=== PATIENT | female | born 1975 | race Caucasian/White ===

== ENCOUNTER 2019-11-05 13:02 | Outpatient (CLI) | payer BC, SELFPAY ==
--- NOTE | ~2019-11-05 | US_ITS ---
EXAMINATION: US venous doppler LE EXAM DATE: 11/05/2019 15:32 INDICATION: Bilateral leg edema. TECHNIQUE: Multiple grayscale, color flow and Doppler images of the lower extremity deep venous syste ms bilaterally were obtained and reviewed. The exam was reviewed on 11/05/2019. There is no prior aditya dy for comparison. FINDINGS: Right side: The right common femoral, femoral and profunda veins demonstrate normal color flow, respi ratory variation, augmentation and compressibility. Compressibility, color flow confirmed within the right popliteal, posterior tibial, peroneal, and greater saphenous veins. Right Standing Venous Mapping: reflux seconds duration; vein size. Greater saphenous origin: 0 seconds; 6.3 mm. Greater saphenous mid thigh:------ 0 seconds; 4.1 mm. Greater saphenous below knee:--- Greater than 4 seconds; 2.2 mm. Lesser saphenous proximally:------ 0 seconds; 3.1 mm. Lesser saphenous distally: 0 seconds; 1.6 mm. Left side: The left common femoral, femoral and profunda veins demonstrate normal color flow, respira tory variation, augmentation and compressibility. Compressibility, color flow confirmed within the l eft popliteal, posterior tibial, peroneal, and greater saphenous veins. Left Standing Venous Mapping: reflux seconds duration; vein size. Greater saphenous origin: 0 seconds; 4.7 mm. Greater saphenous mid thigh:------ 0 seconds; 5.0 mm. Greater saphenous below knee:--- 0 seconds; 2.3 mm. Lesser saphenous proximally:------ 0 seconds; 3.8 mm. Lesser saphenous distally: 0 seconds; 1.6 mm. IMPRESSION: 1. No lower extremity deep venous thrombosis bilaterally. 2. Right mid thigh greater saphenous reflux. Reviewed, dictated and finalized at location A.
== END 2019-11-05 13:03 | disposition home or self-care (01) ==
LOC: ANHIMG 13:14
PROVIDERS: PCP Internal Medicine; Visit Provider Internal Medicine
DX: R60.0 Localized edema (principal)
CPT/HCPCS: 93970

== ENCOUNTER → 2019-11-06 15:58 | Outpatient (CLI) | payer BC, SELFPAY ==
--- NOTE | ~2019-11-06 | MR_ITS ---
EXAMINATION: MR foot LT wo con DATE: 11/06/2019 17:45 INDICATION: Left foot stress fracture. TECHNIQUE: Magnetic resonance imaging (MRI) of the left foot was performed without intravenous contra st. Sequences included sagittal T1-weighted FSE and STIR FSE, long-axis PD-weighted FS FSE and PD-iliana ghted FSE, and short-axis PD-weighted FS FSE and T1-weighted FSE. COMPARISON: None FINDINGS: Bone alignment is normal. No fracture. Bone marrow signal intensity is normal. 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 Lisfranc ligament is normal. The flexor and exte nsor tendons are normal. The muscles demonstrate normal signal intensity. Dorsal subcutaneous edema i s noted in the foot. There is subcutaneous edema in the second and third digits. IMPRESSION: 1. No fracture. Reviewed, dictated and finalized at location A. IMPRESSION: 1. No fracture.
== END ==
PROVIDERS: Visit Provider Podiatrist Foot & Ankle Surgery
DX: M84.375D Stress fracture, left foot, subsequent encounter for fracture with routine healing (principal)
CPT/HCPCS: 73718

== ENCOUNTER → 2019-11-06 16:08 | Outpatient (CLI) | payer BC, SELFPAY ==
--- NOTE | ~2019-11-06 | MM_ITS ---
EXAMINATION: MM screening tonio BI w yadiel HISTORY: Screening mammogram TECHNIQUE: Craniocaudal and mediolateral oblique 3-D tomosynthesis images were obtained and synthetic 2-D images were generated. CAD analysis was submitted and interpreted. COMPARISON: None, baseline BREAST PARENCHYMAL COMPOSITION: The breasts are almost entirely fatty. FINDINGS: RIGHT BREAST: There is focal asymmetry in the middle third of the upper outer quadrant of the breast. LEFT BREAST: There is no evidence of suspicious mass, calcification, or architectural distortion to s uggest malignancy. IMPRESSION: 1. Focal asymmetry of the upper outer right breast. 2. Additional mammographic views and possible breast ultrasound are recommended to evaluate for malig kitty and establish a baseline given that this is the first mammographic examination. BI-RADS Category 0: Incomplete: Needs additional imaging evaluation. Reviewed, dictated and finalized at location A. IMPRESSION: 1. Focal asymmetry of the upper outer right breast. 2. Additional mammographic views and possible breast ultrasound are recommended to evaluate for malignancy and establish a baseline given that this is the fir st mammographic examination. BI-RADS Category 0: Incomplete: Needs additional imaging evaluation.
== END ==
PROVIDERS: Visit Provider Obstetrics & Gynecology
DX: Z12.31 Encounter for screening mammogram for malignant neoplasm of breast (principal)
CPT/HCPCS: 77063; 77067

== ENCOUNTER 2019-11-14 12:36 | Outpatient (CLI) | payer BC, SELFPAY ==
--- NOTE | 2019-11-14 | ECHO_ITS ---
Patient Info Name: Elva Laird Age: 44 years : 1975 Gender: Female Ht: 64 in Wt: 243 lbs BSA: 2.29 m2 HR: 82 bpm BP: 145 / 95 mmHg Heart Rhythm: Sinus Rhythm Technical Quality: Good Exam Date: 11/14/2019 1:13 PM Exam Location: [facility] Patient Status: Outpatient Admit Date: 11/14/2019 Staff Ordering Physician: German*Gilda De Leon MD Union Steward: Amarilis Villanueva RDCS Attending Provider: German*Gilda De Leon MD Referring Physician: Shira WALKER; Exam Type: CA echo doppler color flow Study Info Indications - sob Complete two-dimensional, color flow and Doppler transthoracic echocardiogram is performed. Summary 1. Left ventricular chamber dimension is normal. 2. Left ventricular systolic function is normal, estimated at 60-65%. 3. The left ventricular diastolic function is grade I diastolic dysfunction. 4. There is mildly increased left ventricular wall thickness. 5. The basal inferior wall is hypokinetic. 6. All other irwin appear normal. 7. There is mild mitral valve regurgitation. 8. There is mild tricuspid valve regurgitation. 9. There is mild pulmonic regurgitation. Left Ventricle Left ventricular chamber dimension is normal. Left ventricular systolic function is normal, estimated at 60-65%. There is mildly increased left ventricular wall thickness. The left ventricular diastolic function is grade I diastolic dysfunction. The basal inferior wall is hypokinetic. All other irwin appear normal. Right Ventricle Right ventricular chamber dimension is mildly enlarged. Right ventricular systolic function is normal. Left Atria Left atrial chamber dimension is normal. Right Atria Right atrial chamber dimension is normal. Atrial Septum Intact interatrial septum visualized by color flow imaging. Aortic Valve The aortic valve is trileaflet. There is mild aortic valve sclerosis. There is no aortic valve stenosis. There is trace aortic valve regurgitation. Pulmonic Valve The pulmonic valve is normal. There is no pulmonic valve stenosis. There is mild pulmonic regurgitation. Mitral Valve The mitral valve has normal leaflets. There is no mitral valve stenosis. There is mild mitral valve regurgitation. Tricuspid Valve The tricuspid valve leaflets are normal. There is no significant tricuspid valve stenosis. There is mild tricuspid valve regurgitation. No pulmonary hypertension, estimated pulmonary arterial systolic pressure is 32 mmHg. Pericardium/Pleural The pericardium appears normal. Inferior Vena Cava Normal inferior vena cava with >50% collapse upon inspiration consistent with normal right atrial pressure, 10 mmHg. Aorta The aortic root size at the sinus of Valsalva is normal. The prox ascending aorta size is normal. Left Ventricular Outflow Tract Name Value Normal LVOT 2D LVOT Diameter 2.0 cm LVOT Doppler LVOT Peak Gradient 5 mmHg LVOT Mean Gradient 3 mmHg LVOT VTI 21 cm LVOT VTI/AV VTI Ratio 0.7
== END 2019-11-14 12:37 | disposition home or self-care (01) ==
PROVIDERS: PCP Internal Medicine; Visit Provider Internal Medicine
DX: R06.02 Shortness of breath (principal); I08.3 Combined rheumatic disorders of mitral, aortic and tricuspid valves
CPT/HCPCS: 93306

== ENCOUNTER → 2019-11-22 07:34 | Outpatient (CLI) | payer BC, SELFPAY ==
--- NOTE | ~2019-11-22 | MMUS_ITS ---
EXAMINATION: MM diagnostic mammo unilat RT, US breast RT limited HISTORY: Focal asymmetry of upper outer right breast reported on 11/06/2019 screening mammogram examin ation TECHNIQUE: Additional 3-D tomosynthesis images of the right breast were performed and synthetic 2-D i mages were generated. CAD analysis was submitted and interpreted. High resolution upper outer right b reast ultrasound was performed. COMPARISON: 11/06/2019 bilateral digital screening mammogram FINDINGS: MAMMOGRAPHIC FINDINGS: No suspicious mass or architectural distortion, malignant calcification, skin thickening or retractio n is detected. ULTRASOUND: There are 2 circumscribed uniformly hyperechoic masses at 9:00 18 cm and 19 cm from the nipple, measu ring approximately 5 x 5 mm and 4 x 8.6 mm, respectively. There is no internal vascularity or posteri or shadowing. These are likely small lipomas. As a precaution, 6 month targeted right breast ultrasou nd follow-up is recommended. IMPRESSION: 1. Probable benign lipomas of right breast at 9:00 position 18 and 19 cm from nipple 2. Targeted right breast ultrasound follow-up is recommended in 6 months. BI-RADS category 3, probably benign findings. Reviewed, dictated and finalized at location A. IMPRESSION: 1. Probable benign lipomas of right breast at 9:00 position 18 and 19 cm from n ipple 2. Targeted right breast ultrasound follow-up is recommended in 6 months. BI-RADS category 3, probably benign findings.
== END ==
PROVIDERS: PCP Internal Medicine; Visit Provider Obstetrics & Gynecology
DX: R92.8 Other abnormal and inconclusive findings on diagnostic imaging of breast (principal)
CPT/HCPCS: 76642; 77065

== ENCOUNTER 2020-02-03 08:53 | Inpatient (IN) | payer BC, SELFPAY ==
[2020-02-03] VITALS (9 sets, daily range): BP systolic 140–188; BP diastolic 73–88; PULSE 67–87; RESP 16–23; TEMP 36.2–36.7; O2SAT 97–100; BMI 42.0
--- NOTE | ~2020-02-03 | US_ITS ---
US right upper quadrant INDICATION: Chest pain and right upper quadrant pain PROCEDURE: Realtime right upper abdominal ultrasound. COMPARISON: No prior studies for comparison. FINDINGS: The pancreas is normal without focal mass or pancreatic ductal dilation. There is a small 1 cm hyperechoic mass of the right hepatic lobe, most likely benign hemangioma in the absence of know n malignancy. There is normal directional flow in the portal vein. There are gallstones. No gallbladder wall thickening or pericholecystic fluid. Common bile duct jarod ures 3 mm. No sonographic Moura's sign. IMPRESSION: 1: Cholelithiasis. 2: Small 1 cm hyperechoic mass of the right hepatic lobe, most likely benign hemangioma in the absenc e of known malignancy. Clinically correlate. Reviewed, dictated and finalized at location A. IMPRESSION: 1: Cholelithiasis. 2: Small 1 cm hyperechoic mass of the right hepatic lobe, most likely benign he mangioma in the absence of known malignancy. Clinically correlate.
--- NOTE | ~2020-02-03 | XR_ITS ---
EXAMINATION: XR chest 1V portable 02/03/2020 09:27 INDICATION: Chest pain PROCEDURE: 2 view chest COMPARISON: No prior studies for comparison. FINDINGS: The lungs are clear. The cardiomediastinal silhouette is within normal limits. There are no pleural effusions. There is no pneumothorax suspected. IMPRESSION: 1: NO ACUTE CARDIOPULMONARY DISEASE. Reviewed, dictated and finalized at location A.
--- NOTE | ~2020-02-03 | CT_ITS ---
EXAMINATION: CTA chest PE protocol DATE: 02/03/2020 12:32 INDICATION: Shortness of breath. Chest pain. TECHNIQUE: Computed tomography angiography (CTA) of the chest was performed with 100 mL Omnipaque-350 intravenous contrast timed to evaluate the pulmonary arteries. Coronal maximum intensity projection 3D-reconstructions were created by the technologist. Automated exposure control and iterative reconst ruction technique were employed. The dose-length product was 822.24 mGy-cm. COMPARISON: None. FINDINGS: There is a 5 mm nodule in right middle lobe, likely benign. No pleural effusion. The heart size is normal. No pericardial effusion. There is no pulmonary embolus. There is mild thoracic spondy losis. IMPRESSION: 1. No pulmonary embolus. Reviewed, dictated and finalized at location E. IMPRESSION: 1. No pulmonary embolus.
--- NOTE | 2020-02-03 08:55 | ECG_ITS ---
Measurements Intervals [place] Rate: 85 P: 61 IL: 155 QRS: -15 QRSD: 90 T: 11 QT: 371 QTc: 441 Interpretive Statements SINUS RHYTHM BORDERLINE R WAVE PROGRESSION, ANTERIOR LEADS BORDERLINE T WAVE ABNORMALITY- INFERIOR LEADS BASELINE ARTIFACT- I, II, AVR BORDERLINE ECG Electronically Signed On 02-03-2020 11:07:59 CDT by Ruel Egan D.O.
--- NOTE | 2020-02-03 09:09 | ED.CHESTPAIN ---
HPI - Chest Pain General Chief Complaint: Chest Pain Stated Complaint: CP Time Seen by Provider: 02/03/20 08:59 Source: RN notes reviewed History of Present Illness HPI narrative: Patient presents emergency department from home for chest pain. Patient states that pain woke her from sleep at approximately 2 AM this morning. The pain is located in the right upper quadrant and radiates into the right back. Described as sharp and stabbing. Associated with one episode nausea and vomiting. Patient states she took no previous medication for the symptoms denies any fevers or chills shortness of breath diarrhea. Patient states she was going to get a stress test this morning and has not eaten anything Related Data Allergies Allergy/AdvReac Type Severity Reaction Status Date / Time No Known Allergies Allergy Verified 02/03/20 09:03 Review of Systems Review of Systems: Narrative: Gen.: Denies fevers or chills ENT: Denies congestion Respiratory: Denies shortness of breath or cough CV: Reports chest pain GI: Reports right upper quadrant abdominal pain nausea vomiting. Denies diarrhea Musculoskeletal: Denies back pain or muscle pain Neuro: Denies numbness, tingling, weakness or focal weakness Skin: Denies rash Except as documented, all other systems reviewed and negative [facility] Past Medical History Medical History Depression Grade I diastolic dysfunction Surgical History Surgical History Delivery by section x 2 Family History Family History Father Tonsillar cancer Acute myocardial infarction Grandparent Carcinoma of colon Grandparent Gallbladder disease Sibling Gallbladder disease Social History Social History Smoking status: Former smoker Alcohol intake: current Drinks per week: 14 Alcohol use details: Drinks 2-3 drinks of vodka and water per night. Substance use: never Living arrangements: with family Additional living arrangements comments: Lives with significant other, Rishabh. 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 Gender identity (if verbalized by the patient): Female Sexual Orientation (if Verbalized by the Patient): Straight or Heterosexual Exam Narrative: Exam Narrative: APPEARANCE: No acute distress, nontoxic, resting in bed HEENT: Normocephalic, atraumatic, OMM RESPIRATORY: No respiratory distress, clear to auscultation bilaterally with no rhonchi wheezing or rales CARDIOVASCULAR: RRR s murmur ABDOMINAL: Soft, nondistended, tender palpation right upper quadrant, no tenderness left upper quadrant, right lower quadrant left lower quadrant, no rebound or guarding MUSCULOSKELETAl: Moves all extremities. No clubbing, cyanosis or edema. NEURO: Awake and alert. Following commands, speech normal, no focal deficits SKIN:: Warm, dry. Normal Color PSYCHIATRIC: Normal affect/mood Course Course Emergency Course: Called and discussed with Dr. Izquierdo presentation work-up. This time agrees with admission to his service. Request patient started on Zosyn plan for or tomorrow Discussed with patient and family results of workup and diagnosis. Discussed need for admission. Patient and family understand and agree to current treatment plan Vital Signs Vital signs: Vital Signs Temperature 97.2 F L 02/03/20 08:56 Pulse Rate 87 02/03/20 08:56 Respiratory Rate 22 H 02/03/20 08:56 Blood Pressure 188/88 H 02/03/20 08:56 Pulse Oximetry 100 02/03/20 08:56 Temperature 97.2 F L 02/03/20 08:56 Pulse Rate 78 02/03/20 12:14 Respiratory Rate 22 H 02/03/20 12:14 Blood Pressure 149/74 H 02/03/20 12:14 Pulse Oximetry 98 02/03/20 12:14
[2020-02-03] MEDS: SODIUM CHLORIDE 0.9% IV 1,000 ML 999 ML IV CONT (09:13)
[2020-02-03] MEDS: KETOROLAC 30 MG/ML VIAL (*BKC) IV PUSH (09:13)
[2020-02-03 09:39] LABS: Prothrombin Time 12.7 Seconds (11.1-14.7)
[2020-02-03 09:40] LABS: Partial Thromboplastin Time 30.7 SECONDS (22.3-36.8)
[2020-02-03 09:41] LABS: Alanine Aminotransferase 19 U/L (4-35); Albumin Level 4.5 g/dL (3.5-5.1); Alkaline Phosphatase 78 U/L (38-126); Aspartate Amino Transferase 25 U/L (14-36); Bilirubin,Total 0.5 mg/dL (0.2-1.3); Blood Urea Nitrogen 13 mg/dL (7-17); Carbon Dioxide 22 mmol/L (22-30); Chloride 103 mmol/L (98-107); Estimated CRCL calculation 93 ml/min; Estimated Glomerular Filt Rate > 60; Glucose 110 mg/dL (65-105); Lipase 63 U/L (23-300); Potassium 3.9 mmol/L (3.4-5.0); Sodium 135 mmol/L (137-145)
[2020-02-03 10:13] LABS: Basophils Absolute Auto 0.1 K/mm3 (0.0-0.1); Basophils Percent Auto 0.4 % (0.2-1.2); Eosinophils Percent Auto 0.1 % (0-4.4); Hematocrit 41.4 % (37.0-47.0); Hemoglobin 13.8 g/dL (12.0-15.0); Immature Granulocyte Absolute 0.06 K/mm3 (0.00-0.031); Immature Granulocyte Percent A 0.4 % (0-0.5); Lymphocytes Absolute Auto 1.18 K/mm3 (0.9-3.2); Mean Corpuscular HGB Conc 33.3 g/dl (32-36); Mean Corpuscular Hemoglobin 29.6 pg (26-34); Mean Corpuscular Volume 88.7 fl (80-100); Mean Platelet Volume 8.9 fl (7.4-10.4); Monocytes Absolute Auto 0.5 K/mm3 (0.1-0.6); Monocytes Percent Auto 2.9 % (2.6-8.5); Neutrophils Percent Auto 89.2 % (45.5-73.1); Platelet Count Result 373 k/mm3 (150-375); Red Blood Count 4.67 M/mm3 (4.2-5.4); White Blood Count 16.8 K/mm3 (4.5-10.0)
[2020-02-03 10:51] LABS: Troponin I < 0.012 ng/mL (0.000-0.034)
[2020-02-03] MEDS: MORPHINE SULFATE 4 MG/ML INJ IV PUSH (11:07)
[2020-02-03 11:52] LABS: D Dimer 1.69 ug/mL (<0.48)
--- NOTE | 2020-02-03 12:35 | PM.IMHP ---
H&P: HPI History of Present Illness Chief complaint: Cholecystitis Narrative: Elva Laird is a 44 year old female with a history of depression who had a sudden onset of right-sided chest and right upper quadrant abdominal pain around 2:00 am this morning. She reports eating a grilled pork steak, sweet potatoes, corn, and salad for dinner last night. She states the pain woke her up in her sleep and has been coming and going in waves since the onset. No nausea, vomiting, fever, or chills. She denies having this pain in the past. She reports having a recent workup for fatigue and foot swelling by her PCP and was found to have grade I left ventricular diastolic dysfunction on a recent echocardiogram. She is being followed by Dr. Daniels in Cardiology and was scheduled for a stress test today. She reports that on her way to the stress test, the abdominal and right-sided chest pain was becoming more severe and she decided to present to the emergency department instead for evaluation. Chest x-ray showed no acute cardiopulmonary findings. EKG is sinus rhythm without acute ischemic changes. Labs showed a normal troponin, white blood cell count 16,800, normal LFTs, and normal lipase. Right upper quadrant ultrasound showed cholelithiasis and incidentally a small 1 cm hyperechoic mass of the right hepatic lobe, most likely benign hemangioma. Our service was contacted by the emergency department physician for surgical evaluation. The patient is now being seen in the emergency department. While speaking with her, she had about a 5 minute episode of the right-sided chest and right upper quadrant abdominal pain and states it comes intermittently and radiates to her back and right shoulder. Does report a family history of gallbladder disease. No other complaints at this time. Review of Systems Constitutional: Constitutional: Reports as per HPI, Denies chills, Denies excessive sweating, Reports fatigue, Denies fever(s), Denies headache(s) and Denies weakness Eyes: Eyes: Denies change in vision and Denies loss of vision ENT: Reports Normal hearing present, Denies dizziness and Denies headache(s) Cardiovascular: Cardiovascular: Reports chest pain (right-sided chest pain), Denies syncope, Denies leg edema (left foot swelling intermittent recently, seeing PCP for this), Denies lightheadedness, Denies radiating jaw, neck or arm pain, Denies dyspnea and Denies dyspnea on exertion Respiratory: Respiratory: Denies cough, Denies dyspnea and Denies wheezing Gastrointestinal: Gastrointestinal: Reports as per HPI, Reports abdominal pain (RUQ, epigastric), Denies melena, Denies bloating, Denies hematochezia, Denies change in bowel habits, Denies constipation, Denies dysphagia, Denies diarrhea, Denies nausea and Denies vomiting Genitourinary: Genitourinary: Reports no additional female genitourinary complaints and Denies dysuria Musculoskeletal: Musculoskeletal: Denies deformity, Denies joint swelling, Denies radiating pain into limb and Denies tingling Integumentary/Breasts: Skin/Breast: Denies pruritus, Denies wounds and Denies jaundice Neurologic: Reports Normal hearing present, Denies confusion, Denies dizziness, Denies syncope, Denies headache(s), Denies loss of vision, Denies tingling, Denies tremor(s) and Denies weakness Psychiatric: Psychiatric: Denies anxiety, Denies confusion and Reports depression (takes Lexapro, no current depressive symptoms) Endocrine: Endocrine: Denies cold intolerance, Denies excessive sweating and Denies heat intolerance PMFSH Past Medical History Medical History Depression Grade I diastolic dysfunction Surgical History Surgical History Delivery by section x 2 Family History Family History Father Tonsillar cancer Acute myocardial infarction Grandparent Carcino
--- NOTE | 2020-02-03 13:25 | PM.PNGS ---
Progress Note: A&P Assessment and Plan (1) Acute cholecystitis: Code(s): K81.0 - Acute cholecystitis Status: Acute Assessment and Plan: will go ahead admit the patient and start her on Zosyn. She will be given p.r.n. analgesics as well as IV fluids. Plan to proceed with laparoscopic cholecystectomy tomorrow morning. I have discussed the procedure the risks the benefits with the patient. The usual recovery and possibility of conversion to open surgery were discussed. All questions were answered. She understands and agrees to go ahead. 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 The pain radiated through to her back. It was associated with vomiting. The pain was persistent and she came to the emergency room. She had been having some cardiac symptoms better EKG and troponins were both normal. [place] [id number]. Her LFTs and lipase were both normal. Chest x-ray and chest CT a were both negative. She had a gallbladder ultrasound which showed gallstones. She continues to have waxing and waning severe right upper quadrant abdominal pain. She was noted to have right upper quadrant tenderness on exam. She is admitted now for cholecystitis with gallstones. Plans are to proceed with laparoscopic cholecystectomy tomorrow morning. She has a family history of gallbladder disease as well. Review of Systems Review of Systems: All systems reviewed & are unremarkable except as noted in HPI and below Constitutional: Constitutional: Denies headache(s) Cardiovascular: Cardiovascular: Denies chest pain and Denies dyspnea Respiratory: Respiratory: Denies cough and Denies dyspnea Gastrointestinal: Gastrointestinal: Reports as per HPI Neurologic: Denies confusion and Denies headache(s) Exam Const: General: no acute distress, alert, awake and uncomfortable; No confusion Nutritional Appearance: obese Orientation/consciousness: patient oriented x3 and No confusion GI: Inspection: non-distended and scar ( scar) GI Palp: Yes Soft to palpation, Yes Tenderness to palpation present (GI) ( right upper quadrant and epigastric area), Yes Guarding due to palpation present (GI) ( mild), No Hernia present and No Palpable mass present Auscultation: normal bowel sounds Neuro: General: patient oriented x3, no focal motor deficits and No confusion Extrem: General: no calf tenderness and no edema Psych: Affect: normal affect Insight: Good insight present (Psych) Judgement: Good judgement present (Psych) Objective Data Vital Signs Vital Signs: Vital Signs - 24 hr 02/03/20 08:56 02/03/20 09:01 02/03/20 09:02 Temperature 36.2 C L Pulse Rate 87 85 Respiratory Rate 22 H Blood Pressure 188/88 H Pulse Oximetry 100 100 02/03/20 10:13 02/03/20 12:14 02/03/20 13:18 Temperature Pulse Rate 82 78 70 Respiratory Rate 17 22 H 21 H Blood Pressure 149/75 H 149/74 H 145/73 H Pulse Oximetry 99 98 97 02/03/20 13:23 Temperature Pulse Rate 69 Respiratory Rate 23 H Blood Pressure 145/73 H Pulse Oximetry 97 Intake/Output Intake/Output: Intake & Output 01/31/20 02/01/20 02/02/20 02/03/20 23:59 23:59 23:59 23:59 Intake Total 1000 Balance 1000 Meds/Results Medications: Active Medications Generic Name Dose Route Start Last Admin Trade Name Freq PRN Reason Stop Dose Admin Acetaminophen 500 mg 02/03/20 13:19 Tylenol Tablet PO Q6H PRN Mild Pain (1-3) or Fever Hydrocodone Bitart/Acetaminophen 1 tab 02/03/20 13:19 Musella 5-325 Mg
[2020-02-03] MEDS: DEXTROSE 5%/LACTATED RINGERS 1,000 ML 100 ML IV CONT (14:33)
--- NOTE | 2020-02-03 18:07 | ADMGEN ---
This patient, Elva Laird, was admitted to 3 [facility] Surg Room [id number]. Patient/family oriented to hospital policies and general routines including ID bracelet, bed and alarms, visiting hours, pain management, procedures, bathroom and other care routines, personal items, smoking policy, room service/diet, and visiting hours. Valuables list has been completed. Information on how to activate the Rapid Response Team has been discussed. Patient/Family are encouraged to report perceived risks to care and to ask questions if they do not understand what they are told or what they should do.
[2020-02-03] MEDS: FAMOTIDINE 20 MG/2 ML VIAL IV PUSH (20:45)
--- NOTE | 2020-02-03 21:10 | WPDANESEPP ---
Anes - Eval Pre Procedure Procedure: Operation Date: 02/04/20 10:30 Proposed Procedures p Laparoscopic Cholecystectomy - Isidoro Izquierdo MD Date/Time: 02/03/20 21:10 Pre Op Diagnosis: Cholecystitis Patient Data Age: 44 Gender: F Height: 1.63 m Weight: 111 kg Last Vital Signs Temp 36.3 C L 02/03/20 14:00 Pulse 76 02/03/20 14:00 Resp 16 02/03/20 14:00 BP 153/80 H 02/03/20 14:00 Pulse Ox 98 02/03/20 14:00 Allergies Allergy/AdvReac Type Severity Reaction Status Date / Time No Known Allergies Allergy Verified 02/03/20 09:03 Home Medications Medication Instructions Recorded Confirmed Type escitalopram oxalate 10 mg PO DAILY 02/03/20 02/03/20 History norgestrel-ethinyl estradiol 1 tablet PO DAILY 02/03/20 02/03/20 History [Low-Ogestrel (28)] psyllium husk [Metamucil] 1 tbsp PO DAILY PRN 02/03/20 02/03/20 History Laboratory Tests 02/03/20 02/03/20 02/03/20 09:22 09:22 09:23 WBC RBC Hgb Hct MCV MCH MCHC RDW Plt Count MPV Immature Gran % (Auto) Neut % (Auto) Lymph % (Auto) [place] % (Auto) Eos % (Auto) Baso % (Auto) Lymph # (Auto) [place] # (Auto) Eos # (Auto) Baso # (Auto) Abs Immat Gran (auto) Absolute Neuts (auto) Absolute Nucleated RBC Nucleated RBC % PT 12.7 Seconds Seconds (11.1-14.7) INR 1.0 APTT 30.7 SECONDS SECONDS (22.3-36.8) D-Dimer 1.69 ug/mL H ug/mL (<0.48) Sodium Potassium Chloride Carbon Dioxide BUN Creatinine Estim Creat Clear Calc Estimated GFR Glucose Calcium Total Bilirubin AST ALT Alkaline Phosphatase Troponin I < 0.012 ng/mL ng/mL (0.000-0.034) Total Protein Albumin Lipase Blood Type Antibody Screen 02/03/20 02/03/20 02/03/20 09:23 10:07 14:03 WBC 16.8 K/mm3 H K/mm3 (4.5-10.0) RBC 4.67 M/mm3 M/mm3 (4.2-5.4) Hgb 13.8 g/dL g/dL (12.0-15.0) Hct 41.4 % % (37.0-47.0) MCV 88.7 fl fl (80-100) MCH 29.6 pg pg (26-34) MCHC 33.3 g/dl g/dl (32-36) RDW 13.0 % % (11.5-14.5) Plt Count 373 k/mm3 k/mm3 (150-375) MPV 8.9 fl fl (7.4-10.4) Immature Gran % (Auto) 0.4 % % (0-0.5) Neut % (Auto) 89.2 % H % (45.5-73.1) Lymph % (Auto) 7.0 % L % (18.3-44.2) [place] % (Auto) 2.9 % % (2.6-8.5) Eos % (Auto) 0.1 % % (0-4.4) Baso % (Auto) 0.4 % % (0.2-1.2) Lymph # (Auto) 1.18 K/mm3 K/mm3 (0.9-3.2) [place] # (Auto) 0.5 K/mm3 K/mm3 (0.1-0.6) Eos # (Auto) 0.0 K/mm3 K/mm3 (0-0.3) Baso # (Auto) 0.1 K/mm3 K/mm3 (0.0-0.1) Abs Immat Gran (auto) 0.06 K/mm3 H K/mm3 (0.00-0.031) Absolute Neuts (auto) 15.0 K/mm3 H K/mm3 (1.3-6.7) Absolute Nucleated RBC 0.0 K/mm3 K/mm3 (0.0-0.012) Nucleated RBC % 0.0 % % (0.0-0.2) PT INR APTT D-Dimer Sodium 135 mmol/L L mmol/L (137-145) Potassium 3.9 mmol/L mmol/L (3.4-5.0) Chloride 103 mmol/L mmol/L (98-107) Carbon Dioxide 22 mmol/L mmol/L (22-30) BUN 13 mg/dL mg/dL (7-17) Creatinine 0.80 mg/dL mg/dL (0.7-1.0) Estim Creat Clear Calc 93 ml/min ml/min Estimated GFR > 60 (59 - ) Glucose 110 mg/dL H mg/dL (65-105) Calcium 9.0 mg/dL mg/dL (8.4-10.2)
[2020-02-04] VITALS (13 sets, daily range): BP systolic 114–143; BP diastolic 53–74; PULSE 73–90; RESP 13–20; TEMP 36.1–36.8; O2SAT 93–99
[2020-02-04] MEDS: DEXTROSE 5%/LACTATED RINGERS 1,000 ML 100 ML IV CONT (01:28)
[2020-02-04] MEDS: CHLORHEXIDINE GLUCONATE 4% SOL 120 ML BTL 1 APPLIC TOPICAL (06:16)
[2020-02-04 06:31] LABS: Basophils Percent Auto 0.5 % (0.2-1.2); Eosinophils Absolute Auto 0.2 K/mm3 (0-0.3); Eosinophils Percent Auto 1.7 % (0-4.4); Hematocrit 39.1 % (37.0-47.0); Hemoglobin 13.1 g/dL (12.0-15.0); Immature Granulocyte Absolute 0.03 K/mm3 (0.00-0.031); Immature Granulocyte Percent A 0.3 % (0-0.5); Lymphocytes Absolute Auto 2.13 K/mm3 (0.9-3.2); Lymphocytes Percent Auto 24.5 % (18.3-44.2); Mean Corpuscular HGB Conc 33.5 g/dl (32-36); Mean Corpuscular Hemoglobin 29.7 pg (26-34); Mean Corpuscular Volume 88.7 fl (80-100); Mean Platelet Volume 8.8 fl (7.4-10.4); Monocytes Absolute Auto 0.5 K/mm3 (0.1-0.6); Monocytes Percent Auto 6.2 % (2.6-8.5); Neutrophils Absolute Auto 5.8 K/mm3 (1.3-6.7); Neutrophils Percent Auto 66.8 % (45.5-73.1); Platelet Count Result 348 k/mm3 (150-375); Red Blood Count 4.41 M/mm3 (4.2-5.4); Red Cell Distribution Width 13.1 % (11.5-14.5); White Blood Count 8.7 K/mm3 (4.5-10.0)
[2020-02-04 06:42] LABS: Alanine Aminotransferase 17 U/L (4-35); Albumin Level 3.5 g/dL (3.5-5.1); Alkaline Phosphatase 53 U/L (38-126); Aspartate Amino Transferase 21 U/L (14-36); Bilirubin,Total 0.7 mg/dL (0.2-1.3); Blood Urea Nitrogen 8 mg/dL (7-17); Calcium 8.3 mg/dL (8.4-10.2); Carbon Dioxide 28 mmol/L (22-30); Chloride 107 mmol/L (98-107); Estimated CRCL calculation 84 ml/min; Estimated Glomerular Filt Rate > 60; Glucose 113 mg/dL (65-105); Potassium 4.3 mmol/L (3.4-5.0); Sodium 138 mmol/L (137-145)
[2020-02-04] MEDS: LACTATED RINGERS 1,000 ML 30 ML IV CONT ×2 (09:52→12:08)
--- NOTE | 2020-02-04 10:32 | WPDANESEFPP ---
Anes - Eval Final PreProcedure Day of Procedure 02/04/20 10:32 Patient weight: morbidly obese Heart: regular rate and rhythm Lungs: clear to auscultation Airway: Mallampati scale class II Neurological: alert and oriented Last oral intake: >/= 8 hours ASA classification: III Emergent: no Anesthetic plan: proceed Anesthesia type and monitoring: general ETT and standard monitoring Informed Consent: The patient's anesthetic plan and its attendant risks and benefits were discussed with the patient/family/POA. Questions were solicited and answers provided to the satisfaction of the patient/family/POA.
[2020-02-04 10:47] LABS: Beta HCG Quantitative < 2.39 mIU/ML
--- NOTE | 2020-02-04 11:02 | PC.NURSE ---
To OR per BED[ ], IV SORE AND EDEMA NOTED REPORTED THIS TO OR BEFORE SENDING, THEY SAID THEY WOULD TAKE CARE OF IT , I OFFERED TO START NEW IV. GAVE REPORT TO THERASE. PT VOIDED AND PROMISE PANTS APPLIED.SENT ANTIBX WITH PT.[ ]
[2020-02-04] MEDS: BUPIVACAINE/EPINEPHRINE 0.5% 30 ML VIAL 20 ML INFILTRATE (11:47)
--- NOTE | 2020-02-04 12:13 | PM.PROC ---
Procedure Note - Detailed Date of procedure: 02/04/20 Pre-op diagnosis: Cholecystitis Chronic cholecystitis, cholelithiasis Post-op diagnosis: other (Choledocholithiasis with gangrenous acute cholecystitis with stones with cystic duct obstruction) Procedure performed: Laparoscopic cholecystectomy Description of procedure: The patient was taken to surgery and induced into general anesthesia. The abdomen was prepped and draped. Trocars were placed in the usual fashion using 0.5% Marcaine with epinephrine and applied Medical optical trocars. 5 mm camera was used. The gallbladder was surrounded by omental adhesions. These were taken down and a very distended, angry, and reddened gallbladder was noted. There was evidence of gangrenous change in the gallbladder wall. Once these adhesions were taken down, I then proceeded to decompress the gallbladder with a laparoscopic aspirator. Thickened, dark bile was returned. The gallbladder decompressed well. We then retracted the gallbladder anterosuperiorly and freed the remaining adhesions to the infundibulum and distal gallbladder. Traction was placed on the infundibulum and dissection was started. The gallbladder was dissected in the triangle of Calot and the cystic duct and cystic artery were found. Each of these was dissected very carefully. The gallbladder was also dissected off the liver at its lower 3rd. Critical view was achieved. I securely clipped and divided the cystic duct and cystic artery. There was a lot of acute inflammation with edema making the dissection more difficult. The gallbladder was partially intrahepatic over the upper 60%. Much of the wall was gangrenous. It was difficult to find a tissue plane between the gallbladder and the liver. Some openings in the gallbladder were made although mostly we dissected off liver with the gallbladder leaving some raw liver surface in the gallbladder fossa. Cautery was used to achieve hemostasis. The dissection was difficult but we persevered freeing the gallbladder from the liver bed. Eventually the gallbladder was removed at the fundus. We then placed the gallbladder in an Endo-Catch bag and retrieved it through the 10 11 epigastric trocar site. Once the gallbladder was removed, the epigastric trocar was replaced and we examined the right upper quadrant. Suction, cautery, and irrigation was used. We cauterized the gallbladder fossa and eventually achieved good hemostasis. The area was repeatedly irrigated and suctioned until it was quite clean. We looked a final time at the gallbladder fossa and areas of dissection. All looked good. There was no evidence of bleeding or bile leakage. We then evacuated CO2 and removed the trocar sleeves. All skin wounds were closed with subcuticular 4 O Monocryl skin suture. The wounds were dressed with Exofin surgical adhesive. The patient was awakened and taken to recovery in good condition. Estimated blood loss was 20 cc. Sponge and needle counts were correct x2. Anesthesia: GETA and local (0.5% Marcaine with epinephrine) Surgeon: Isidoro Izquierdo MD Ethylbenzene Cracking Supervisor: Donny JAMES, Conner JAMES Estimated blood loss (mL): 20 Drains: No (JAYJAY drain right upper quadrant) Packing: No Pathology: yes (Gallbladder) Complications: None Condition: stable Disposition: PACU Findings: Gangrenous acute cholecystitis. No large gallstones were noted. Fatty liver was noted. No biliary ductal dilatation.
--- NOTE | 2020-02-04 13:09 | SUR.PHASEI ---
1308 - family updated on pt's status
[2020-02-04] MEDS: FAMOTIDINE 20 MG/2 ML VIAL IV PUSH ×2 (14:03→21:32)
[2020-02-04] MEDS: ESCITALOPRAM OXALATE 10 MG TABLET PO (15:44)
[2020-02-04] MEDS: LACTATED RINGERS 1,000 ML 100 ML IV CONT (18:56)
--- NOTE | 2020-02-04 20:17 | PHAR ---
The patient's home med Norgestrel-Ethinyl Estradiol [Low-Ogestrel (28)] has been verified.
[2020-02-05 02:00] VITALS: BP 147/72; PULSE 82; RESP 20; TEMP 36.9; O2SAT 94
[2020-02-05] MEDS: LACTATED RINGERS 1,000 ML 100 ML IV CONT (05:31)
[2020-02-05 06:00] VITALS: BP 129/62; PULSE 70; RESP 20; TEMP 36.7; O2SAT 96
[2020-02-05 06:39] LABS: Basophils Percent Auto 0.1 % (0.2-1.2); Hematocrit 38.9 % (37.0-47.0); Hemoglobin 13.1 g/dL (12.0-15.0); Immature Granulocyte Absolute 0.06 K/mm3 (0.00-0.031); Immature Granulocyte Percent A 0.4 % (0-0.5); Lymphocytes Absolute Auto 1.38 K/mm3 (0.9-3.2); Lymphocytes Percent Auto 8.2 % (18.3-44.2); Mean Corpuscular HGB Conc 33.7 g/dl (32-36); Mean Corpuscular Hemoglobin 29.6 pg (26-34); Mean Corpuscular Volume 87.8 fl (80-100); Mean Platelet Volume 9.1 fl (7.4-10.4); Monocytes Absolute Auto 0.6 K/mm3 (0.1-0.6); Monocytes Percent Auto 3.8 % (2.6-8.5); Neutrophils Absolute Auto 14.8 K/mm3 (1.3-6.7); Neutrophils Percent Auto 87.5 % (45.5-73.1); Platelet Count Result 391 k/mm3 (150-375); Red Blood Count 4.43 M/mm3 (4.2-5.4); White Blood Count 16.9 K/mm3 (4.5-10.0)
[2020-02-05 06:48] LABS: Blood Urea Nitrogen 5 mg/dL (7-17); Calcium 8.7 mg/dL (8.4-10.2); Carbon Dioxide 25 mmol/L (22-30); Chloride 105 mmol/L (98-107); Estimated CRCL calculation 93 ml/min; Estimated Glomerular Filt Rate > 60; Glucose 130 mg/dL (65-105); Potassium 3.9 mmol/L (3.4-5.0); Sodium 136 mmol/L (137-145)
[2020-02-05] MEDS: ESCITALOPRAM OXALATE 10 MG TABLET PO (09:00)
[2020-02-05] MEDS: ENOXAPARIN 40 MG/0.4 ML SYRINGE SUB-Q (09:01)
[2020-02-05] MEDS: FAMOTIDINE 20 MG/2 ML VIAL IV PUSH (09:01)
--- NOTE | 2020-02-05 09:19 | WPDANESPN ---
Anes - Prog Note Post-Op Date/Time: 02/05/20 09:19 Cardiovascular status: normal Respiratory status: normal Airway patency: baseline Mental status: baseline Post-Op hydration status: normal Vital Signs: Last Vital Signs Temp 36.7 C 02/05/20 06:00 Pulse 70 02/05/20 06:00 Resp 20 02/05/20 06:00 BP 129/62 02/05/20 06:00 Pulse Ox 96 02/05/20 06:00 I/O: Intake & Output 02/04/20 02/05/20 02/05/20 23:59 07:59 15:59 Intake Total 520 1770 Output Total 2600 1800 Balance -2079 Laboratory Tests 02/05/20 06:12 02/05/20 06:12 02/04/20 02/05/20 02/05/20 06:21 06:12 06:12 WBC 16.9 H RBC 4.43 Hgb 13.1 Hct 38.9 MCV 87.8 MCH 29.6 MCHC 33.7 RDW 13.0 Plt Count 391 H MPV 9.1 Immature Gran % (Auto) 0.4 Neut % (Auto) 87.5 H Lymph % (Auto) 8.2 L Doddridge % (Auto) 3.8 Eos % (Auto) 0.0 Baso % (Auto) 0.1 L Lymph # (Auto) 1.38 Doddridge # (Auto) 0.6 Eos # (Auto) 0.0 Baso # (Auto) 0.0 Abs Immat Gran (auto) 0.06 H Absolute Neuts (auto) 14.8 H Absolute Nucleated RBC 0.0 Nucleated RBC % 0.0 Sodium 136 L Potassium 3.9 Chloride 105 Carbon Dioxide 25 BUN 5 L Creatinine 0.80 Estim Creat Clear Calc 93 Estimated GFR > 60 Glucose 130 H Calcium 8.7 Beta HCG, Quant < 2.39 Post-procedural complaints: none Patient Feedback: Patient satisfied with anesthetic care.
[2020-02-05 10:00] VITALS: BP 131/74; PULSE 68; RESP 16; TEMP 37.1; O2SAT 97
[2020-02-05 14:00] VITALS: BP 121/64; PULSE 77; RESP 16; TEMP 36.6; O2SAT 97
--- NOTE | 2020-02-05 14:22 | PM.DS ---
DS: Admitting Diagnosis Admitting Diagnosis Admitting Diagnosis: Acute cholecystitis DS: Discharge Diagnosis Discharge Diagnosis (1) Acute cholecystitis: Code(s): K81.0 - Acute cholecystitis Status: Acute (2) Grade I diastolic dysfunction: Code(s): I51.9 - Heart disease, unspecified Status: Acute (3) Depression: Code(s): F32.9 - Major depressive disorder, single episode, unspecified Status: Acute DS: Summary Hospital Course Reason for hospitalization: Elva Laird is a 44 year old female with a history of depression who had a sudden onset of right-sided chest and right upper quadrant abdominal pain in the middle of the night after eating a grilled pork steak, sweet potatoes, corn, and salad for dinner. The abdominal pain radiated to her right chest and shoulder and also into her back. The pain continued to worsen and she presented to the ED for further evaluation. Chest x-ray showed no acute cardiopulmonary findings. EKG was sinus rhythm without acute ischemic changes. Labs showed a normal troponin, white blood cell count 16,800, normal LFTs, and normal lipase. Right upper quadrant ultrasound showed cholelithiasis and incidentally a small 1 cm hyperechoic mass of the right hepatic lobe, most likely benign hemangioma. Our service was contacted by the emergency department physician for surgical evaluation and she was admitted to our service. Hospital Course: The patient was found to have acute cholecystitis and treatment options were discussed. She was taken for a laparoscopic cholecystectomy by Dr. Izquierdo on 02/04/20. She was found to have a gangrenous gallbladder (see operative note for full report) and was started on IV antibiotics. She was slowly advanced on her diet to a low fat diet today. Today IV fluids were stopped. Labs this morning showed a WBC count of 16,000. Post-operatively she seems to be doing well. She has tolerable abdominal pain that is only at the incisions and she states that the pain she was having prior to surgery has completely alleviated. No shortness of breath, chest pain, leg swelling, or other complaints at the time of my exam today. She is tolerating activity and tolerating her diet without any nausea, vomiting, or bloating. She reports passing gas and a small bowel movement after surgery last night. No other complaints at this time. Voiding without difficulty. I discussed the patient's case with Dr. Chauhan and she is okay to be discharged home on oral antibiotics. I discussed discharge care instructions with the patient in detail and answered all questions. I also brought information for a low fat diet to the patient. Will plan to send her home on 5 more days of Augmentin. Status at Discharge Functional status at discharge: independent ambulation Overall status at discharge: patient is progressing back to baseline Time Spent with Patient Time attestation: Total time spent providing and/or coordinating discharge services: Time spent: Greater than 30 minutes Exam Const: General: comfortable, no acute distress, alert and awake Orientation/consciousness: patient oriented x3 Resp: Effort & Inspection: normal respiratory effort Auscultation: clear to auscultation bilaterally Cardio: Rate: regular rate Rhythm: regular rhythm GI: Inspection: non-distended, incision (Incisions clean/dry/intact with some localized bruising around incisions) and obesity GI Palp: Yes Soft to palpation, Yes Tenderness to palpation present (GI) (incisional), No Guarding due to palpation present (GI) and No Rebound tenderness present Auscultation: normal bowel sounds Neuro: General: patient oriented x3 and moves all extremities Cranial nerves: Yes CN's II-XII intact bilaterally Speech: normal speech Extrem: General: no calf tenderness and no edema Psych: Mental Status: mental status grossly normal Attitude: cooperative Thought process: Normal thought process present Thought content: Yes Normal thou
== END 2020-02-05 15:56 | disposition home or self-care (01) | DRG 418 ==
LOC: ANHED 12:55 → ANH2MED 13:12 → ANH3MEDSUR 13:34
PROVIDERS: Anesthesiology; Admitting Provider Surgery; Emergency Provider Emergency Medicine; PCP Internal Medicine; Visit Provider Surgery
PROC: 0FT44ZZ Resection of Gallbladder, Percutaneous Endoscopic Approach (ICD-10-PCS; CPT 47562; principal; 2020-02-04 10:30)
DX: K80.01 Calculus of gallbladder with acute cholecystitis with obstruction (principal); Z68.41 Body mass index [BMI] 40.0-44.9, adult; K82.A1 Gangrene of gallbladder in cholecystitis; E66.01 Morbid (severe) obesity due to excess calories; K76.0 Fatty (change of) liver, not elsewhere classified; F32.9 Major depressive disorder, single episode, unspecified; Z87.891 Personal history of nicotine dependence
CPT/HCPCS: 36415; 71045; 71275; 76705; 80048; 80053; 83690; 84484; 84702; 85025; 85380; 85610; 85730; 86850; 86900; 86901; 88304; 93005; 96361; 96365; 96375; 96376; 99285; A9270; C1713; G0378; J0131; J0330; J1100; J1170; J1200; J1650; J1885; J2250; J2270; J2405; J2543; J2704; J2710; J3010; J7030; J7120; J7121; Q9967

== ENCOUNTER 2020-05-07 08:33 | Outpatient (CLI) | payer BC, SELFPAY ==
--- NOTE | 2020-05-12 05:15 | SLEEP_ITS ---
HOME SLEEP TEST DATE OF STUDY: 05/07/2020 ORDERING PHYSICIAN: Jaron Daniels M.D. REASON FOR THE STUDY: Hypersomnolence. HISTORY: This patient is a 45-year-old female, 5 feet 4 inches tall, weighing 240 pounds with a body mass index of 41.1. She constantly snores and it is frequently loud enough that others complain about it. She occasionally awakens at night with heartburn, belching, or coughing. She rarely awakens from sleep feeling short of breath. She feels tired all day, has no energy, and has to resist the urge to nap daily. She yawns all day long. She constantly has trouble sleeping with a cold. She occasionally wakes up gasping for breath during the night, rarely has breathing problems at night observed by others. She occasionally sweats excessively at night occasionally notices her heart pounding or beating irregularly at night, frequently falls asleep during the day, involuntarily only rarely while driving. She does not fall asleep during physical effort. She does not have loss of muscle tone with strong emotion. She rarely has daytime difficulty due to excessive sleepiness. She rarely feels paralyzed on waking or falling asleep, and rarely has vivid dreamlike scenes upon awakening or falling asleep. She is never afraid to go to sleep. She denies having nightmares. She occasionally remembers her dreams, occasionally has racing thoughts, feelings of sadness, depression, and anxiety. Frequently, she has muscular tension. She occasionally notices parts of her body jerking. Rarely kicks at night. She frequently has crawling and aching feelings in her legs. She occasionally has leg pain at night, rarely wakes up with morning jaw pain, does not grind her teeth at night. She frequently is bothered by pain during the day. She occasionally is awakened by pain during the night. She frequently wakes up feeling stiff in the morning, constantly with sore achy muscles, frequently with pain in the neck and spine. She has fatigue. Normal bedtime is between 10 p.m. and midnight, taking 1 to 2 hours to fall asleep, tossing and turning all night. When she wakes, she will go to the bathroom. She wakes in the morning between 6 and 6:45 a.m. Weekend schedule is a bit different, going to bed between 11 and midnight and awaking at 9 in the morning. She has to the snooze the button once on work days and sleeps in on the weekends. She occasionally takes naps if time permits. A short nap is not refreshing. She is usually drowsy in the morning for 3 hours or longer. MEDICAL COMORBIDITIES: Depression, fatigue, gastroesophageal reflux disease, hyperlipidemia, and squamous cell skin cancer. MEDICATIONS: 1. Lexapro 10 mg a day. 2. control 1 daily. HABITS: Used to smoke tobacco years ago. Caffeine, 2 to 4 servings a day. Alcohol, 2 to 4 servings a day. DESCRIPTION OF THE STUDY: On the Edison Sleepiness Scale, her score was 18, very elevated. This was conducted as an unattended type 3 portable home sleep test using 4-channel monitoring, including respiratory effort channel, snoring channel, oxygen saturation channel, and heart rate channel. This study was scored using the [facility] guidelines. The duration of this study was 7 hours 15 minutes. The apnea-hypopnea index is 3. The oxygen desaturation index is 1.5. Both of these are normal. Lowest desaturation is 92%. She had 9 apneas, which were all obstructive. She had 12 hypopneas. She had 781 snoring events and 13 desaturations with no time spent below 88%. Lowest saturation 92%. Heart rate ranged from 63 to 111. IMPRESSION: 1. This home sleep test shows an evidence of no significant sleep-disordered breathing. The apnea-hypopnea index is normal. Her excessive sleepiness is out of proportion to the
== END 2020-05-07 08:34 | disposition home or self-care (01) ==
LOC: ANHCSM 08:33
PROVIDERS: PCP Internal Medicine; Visit Provider Internal Medicine Cardiovascular Disease
DX: G47.10 Hypersomnia, unspecified (principal); R40.0 Somnolence; R06.83 Snoring; R06.02 Shortness of breath; Z87.891 Personal history of nicotine dependence; Z68.41 Body mass index [BMI] 40.0-44.9, adult
CPT/HCPCS: 95806

== ENCOUNTER 2020-06-11 06:36 | Outpatient (CLI) | payer BC, SELFPAY ==
[2020-06-15 04:43] LABS: Adrenocorticotropic Hormone 17 pg/mL (6-50)
== END 2020-06-11 06:37 | disposition home or self-care (01) ==
PROVIDERS: PCP Internal Medicine; Visit Provider Internal Medicine
DX: E34.9 Endocrine disorder, unspecified (principal)
CPT/HCPCS: 36415; 82024; 82533; 96372; J0834

== ENCOUNTER 2020-12-04 14:30 | Outpatient (CLI) | payer BC, SELFPAY | END 2020-12-04 14:31 | disposition home or self-care (01) | LOC: ANHSURGERY 14:33 | PROVIDERS: PCP Internal Medicine; Visit Provider Obstetrics & Gynecology | DX: R10.2 Pelvic and perineal pain (principal) | CPT/HCPCS: 36415; 86850; 86900; 86901 ==

== ENCOUNTER → 2020-12-05 00:51 | Outpatient (CLI) | payer BC, SELFPAY ==
[2020-12-05 18:53] LABS: SARS-CoV-2 RNA PCR Negative
== END ==
PROVIDERS: PCP Internal Medicine; Visit Provider Obstetrics & Gynecology
DX: Z01.812 Encounter for preprocedural laboratory examination (principal); Z20.822 Contact with and (suspected) exposure to COVID-19
CPT/HCPCS: C9803; U0003; U0005

== ENCOUNTER 2020-12-09 02:07 | Day surgery (SDC) | payer BC, SELFPAY ==
[2020-11-23 15:15] VITALS: BMI 37.4
[2020-12-09] VITALS (12 sets, daily range): BP systolic 104–124; BP diastolic 47–64; PULSE 64–89; RESP 12–18; TEMP 36.4–37.1; O2SAT 98–100
--- NOTE | 2020-12-09 08:38 | PM.IMHP ---
H&P: HPI History of Present Illness Date/Time: 12/09/20 08:38 44 y/o with heavy, irregular vaginal bleeding. She has had a tubal ligation. She had taken norethindrone 5 mg daily for years, but bleeding began to break through about two years ago. We attempted an endometrial ablation, but this was not completed due to a suspected uterine perforation. She has several myomata. Endometrial curettings in April 2019 were benign. She is ready for definitive management with hysterectomy. Chief Complaint: Heavy bleeding Review of Systems Review of Systems: All systems reviewed & are unremarkable except as noted in HPI and below PMFSH Past Medical History Medical History (Updated 12/09/20 @ 08:43 by Shane Zhang MD) Depression Grade I diastolic dysfunction Surgical History Surgical History Delivery by section x 2 Hx laparoscopic cholecystectomy Family History Family History Father Tonsillar cancer Acute myocardial infarction Grandparent Carcinoma of colon Grandparent Gallbladder disease Sibling Gallbladder disease Social History Social History Smoking packs per day: 2 Smoking cigarettes per day: 40.0 Years smoked: 15 Smoking pack-years: 30.00 Smoking status: Former smoker Tobacco type: cigarettes Second hand tobacco smoke exposure: No Smoking end date: 02/26/04 Alcohol intake: current Drinks per week: 7 Substance use: never Living arrangements: with family Additional living arrangements comments: Lives with significant otherRishabh. 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 Gender identity (if verbalized by the patient): Female Spiritual care concerns: No Meds Home Medications and Allergies Home Medications Medication Instructions Recorded Confirmed Type fluticasone propionate 1 spray INTRANASAL HS 07/28/20 11/23/20 History norgestrel-ethinyl estradiol 1 tablet PO DAILY 11/23/20 11/23/20 History [Nidia (28)] Allergies Allergy/AdvReac Type Severity Reaction Status Date / Time No Known Allergies Allergy Verified 11/23/20 15:43 Exam Const: Orientation/consciousness: patient oriented x3 Other: Well-developed, well-nourished female in no acute distress. Neck: Thyroid: thyroid normal Lymphatic: no lymphadenopathy noted (in neck, axilla or inguinal nodes) Resp: Effort & Inspection: normal respiratory effort Auscultation: clear to auscultation bilaterally Cardio: Rate: regular rate Rhythm: regular rhythm Heart sounds: S1 normal heart sound present and S2 normal heart sound present GI: Other: ABD: Soft, nontender, nondistended. No guarding or rebound tenderness. No hepatosplenomegaly. : General: Yes no CVA tenderness Other: External genitalia: normal female hair distribution, without lesion. Urethral meatus: no lesion, non prolapsed. Bladder: no mass, nontender Vagina: well-estrogenized, without lesion or discharge. No cystocele or rectocele. Cervix: no lesion or discharge. Uterus: small, anteverted, freely mobile, nontender Adnexa: no mass or tenderness. Anus/perineum: no lesions, nontender Back/Spine/Pelvis: Back: no CVA tenderness Skin: General skin exam: normal color and no rashes or lesions noted Neuro: General: patient oriented x3 Extrem: Other: Extremities: nontender with no edema Psych: Mental Status: mental status grossly normal Affect: normal affect Assessment and Plan Assessment and plan (1) Menometrorrhagia: Code(s): N92.1 - Excessive and frequent menstruation with irregular cycle Status: Acute Assessment and Plan: A: Menometrorrhagia in the setting of a fibroid uterus, refractory to conservative management. P: We reviewed medic
[2020-12-09] MEDS: LACTATED RINGERS 1,000 ML 30 ML IV CONT ×2 (10:24→15:09)
[2020-12-09] MEDS: ACETAMINOPHEN 500 MG TABLET 1000 MG PO (10:26)
[2020-12-09] MEDS: KETOROLAC 15 MG/ML VIAL (*BKC) IV PUSH (10:26)
--- NOTE | 2020-12-09 10:55 | P.PNAN_ITS ---
Anes - Initial Pre Proc Eval Procedure: Operation Date: 12/09/20 12:00 Proposed Procedures p Robotic Assisted Total Vaginal Hysterectomy with Bilateral Salpingectomy - Shane Zhang MD Date/Time: 12/09/20 10:55 Surgeon: Shane Zhang MD Pre Op Diagnosis: pelvic pain Patient Data Age: 45 Gender: F Height: 5 ft 4 in Weight: 101.5 kg Allergies Allergy/AdvReac Type Severity Reaction Status Date / Time No Known Allergies Allergy Verified 12/09/20 09:54 Home Medications Medication Instructions Recorded Confirmed Type fluticasone propionate 1 spray INTRANASAL HS 07/28/20 12/09/20 History norgestrel-ethinyl estradiol 1 tablet PO DAILY 11/23/20 12/09/20 History [Nidia (28)] Patient hx anesthesia problems: other (motion sickness) Family hx anesthesia problems: none PMFSH Past Medical History Medical History Depression Grade I diastolic dysfunction Surgical History Surgical History Delivery by section x 2 Hx laparoscopic cholecystectomy Family History Family History Father Tonsillar cancer Acute myocardial infarction Grandparent Carcinoma of colon Grandparent Gallbladder disease Sibling Gallbladder disease Social History Social History Smoking packs per day: 2 Smoking cigarettes per day: 40.0 Years smoked: 15 Smoking pack-years: 30.00 Smoking status: Former smoker Tobacco type: cigarettes Second hand tobacco smoke exposure: No Smoking end date: 02/26/04 Alcohol intake: current Drinks per week: 7 Substance use: never Living arrangements: with family Additional living arrangements comments: Lives with significant otherRishabh. 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 Gender identity (if verbalized by the patient): Female Spiritual care concerns: No Anes - Eval Final PreProcedure Day of Procedure 12/09/20 10:55 Patient weight: obese Heart: regular rate and rhythm Lungs: clear to auscultation Airway: Mallampati scale class 1 Neurological: alert and oriented Last oral intake: >/= 8 hours ASA classification: II Emergent: no Anesthetic plan: proceed Anesthesia type and monitoring: general ETT and standard monitoring Informed Consent: The patient's anesthetic plan and its attendant risks and benefits were discussed with the patient/family/POA. Questions were solicited and answers provided to the satisfaction of the patient/family/POA.
[2020-12-09] MEDS: SCOPOLAMINE 1.5 MG PATCH TRANSDERM (11:01)
--- NOTE | 2020-12-09 12:40 | WPDHPUPDATE1 ---
History and Physical Update Update Date/Time: 12/09/20 12:40 History and Physical has been reviewed, including an updated exam of the patient. There are NO changes in the patient's condition. Risks, benefits, and alternatives have been discussed and questions answered. Patient agrees to proceed with procedure.
--- NOTE | 2020-12-09 14:55 | SUR.OPER ---
uterus 71.5gm EBL 100ml
--- NOTE | 2020-12-09 14:58 | P.OP_ITS ---
Procedure Note - Detailed Date of procedure: 12/09/20 Pre-op diagnosis: pelvic pain Menometrorrhagia Post-op diagnosis: same Procedure performed: Robotic assisted total vaginal hysterectomy with bilateral salpingectomies Description of procedure: The patient was taken to the operating room where general endotracheal anesthesia was administered. She was prepared and draped in the usual sterile fashion in the dorsal lithotomy position. The bladder was drained with Rice catheter. The cervix was visualized and the anterior lip was grasped using a single-tooth tenaculum. The cervix was gently dilated using Hegar dilators. The HERI 2 uterine manipulator was then placed and the tenaculum was removed. Gloves were changed and attention was turned to the abdomen. A supraumbilical skin incision was made with the scalpel. The Veress needle was advanced and pneumoperitoneum was administered using carbon dioxide gas. The bladeless trocar was then advanced. Intraperitoneal placement was confirmed using the laparoscope. Lateral ports and an physical therapy assistant instructor port were all placed using bladeless trocars under direct laparoscopic visualization. She was placed in Trendelenburg position and the patient cart was docked. I assumed the console. The ureters were visualized bilaterally. The round ligament on the right was divided. The Fallopian tube was dissected free of the ovary. The uteroovarian ligament was divided. The broad ligament was divided, skeletonizing the uterine artery on the right. The bladder was reflected away. The left side was similarly dissected. Colpotomy was performed circumferent ially. The specimen was removed and passed off to be sent to pathology. The vaginal cuff was reapproximated using 0 Vicryl in interrupted [id number] fashion. The pelvis was irrigated copiously using warmed normal saline. Rigorous hemostasis was assured. HemaDerm was applied to the vaginal cuff. The pedicles were inspected once again. The ports were then withdrawn and the gas was allowed to escape. The skin incisions were reapproximated using 4 0 Monocryl in interrupted subcuticular fashion. Dermaflex was applied externally. Sponge, lap, needle and instrument counts were correct. The patient was awakened and taken to the recovery room in stable condition. I was present and scrubbed through the entire procedure. Implants: None Anesthesia: GETA Surgeon: Shane Zhang MD Estimated blood loss (mL): 100 Drains: Yes (rice) Packing: No Pathology: yes (Uterus, cervix, bilateral Fallopian tubes) Complications: None Condition: stable Disposition: PACU Findings: Normal-appearing uterus and ovaries. Bilateral tubes with evidence of prior tubal ligation. Anterior cul-de-sac with adhesions. Posterior cul-de-sac, bilateral round and uterosacral ligaments all normal-appearing.
--- NOTE | 2020-12-09 15:01 | PM.DS ---
DS: Admitting Diagnosis Admitting Diagnosis Admitting Diagnosis: Menometrorrhagia DS: Discharge Diagnosis Discharge Diagnosis (1) Menometrorrhagia: Code(s): N92.1 - Excessive and frequent menstruation with irregular cycle Status: Acute DS: Summary Hospital Course Hospital Course: Admitted to hospital on date of scheduled surgery. Please see my op note for details. Did well postop and was able to go home on POD1. DS: Data Data Completed and Pending Pending studies at discharge: Pending at discharge 12/09/20 14:07 Surgical [PTH] Routine Discharge Plan Discharge Patient Disposition: Home, Self-Care Discharge Instructions: Call or return if temperature above 100.4? F, increased abdominal pain, increased vaginal bleeding or any new problems. Pelvic rest for 6 weeks. Patient Instructions: Pain Management (DC), Vaginal Hysterectomy (DC) Stand Alone Forms: General Discharge Instructions Follow-up/Referrals: Shane Zhang MD [Physician] - 2 Weeks Discharge Medications: New hydrocodone-acetaminophen 5-325 mg tablet 1 - 2 tablet PO Q6H PRN (Reason: pain) Qty: 30 RF: 0 Continued fluticasone propionate 50 mcg/actuation spray,suspension 1 spray INTRANASAL HS RF: 0 Discontinued Cryselle (28) 0.3-30 mg-mcg tablet 1 tablet PO DAILY RF: 0
[2020-12-09] MEDS: fentaNYL CITRATE INJ (*CRX) 100 MCG/2 ML VIAL 25 MCG IV PUSH ×2 (15:56→16:20)
--- NOTE | 2020-12-09 17:05 | PC.NURSE ---
Pt arrived on unit via bed accompanied by spouse. PT alert and awake and oriented to room 288 and surrounding area. PT introductions made and plan of care discussed per post op adaptive physical education specialist surgery, daily care activities. PT verbalized understanding of such instructions. No barriers to learning noted. one to one discussion and instructions.
[2020-12-09] MEDS: DEXTROSE 5%/0.45% SOD CHL 1,000 ML 125 ML IV CONT (17:21)
[2020-12-09] MEDS: KETOROLAC 30 MG/ML VIAL (*BKC) IV PUSH (17:28)
[2020-12-09] MEDS: SIMETHICONE 80 MG TAB.CHEW PO ×2 (17:28→22:51)
[2020-12-09] MEDS: IBUPROFEN 600 MG TABLET PO (22:51)
[2020-12-09] MEDS: HYDROcodone/acetaminophen (*CRX) 5-325 MG TABLET 1 TAB PO (22:52)
[2020-12-09] MEDS: ENOXAPARIN 40 MG/0.4 ML SYRINGE SUB-Q (22:53)
[2020-12-10] MEDS: IBUPROFEN 600 MG TABLET PO (05:17)
[2020-12-10] MEDS: HYDROcodone/acetaminophen (*CRX) 5-325 MG TABLET 1 TAB PO ×2 (05:18→09:31)
[2020-12-10 05:50] LABS: Basophils Percent Auto 0.1 % (0.2-1.2); Hematocrit 39.2 % (37.0-47.0); Hemoglobin 13.3 g/dL (12.0-15.0); Immature Granulocyte Absolute 0.09 K/mm3 (0.00-0.031); Immature Granulocyte Percent A 0.5 % (0-0.5); Lymphocytes Absolute Auto 1.43 K/mm3 (0.9-3.2); Lymphocytes Percent Auto 7.6 % (18.3-44.2); Mean Corpuscular HGB Conc 33.9 g/dl (32-36); Mean Corpuscular Volume 88.3 fl (80-100); Mean Platelet Volume 9.2 fl (7.4-10.4); Monocytes Absolute Auto 0.8 K/mm3 (0.1-0.6); Neutrophils Absolute Auto 16.6 K/mm3 (1.3-6.7); Neutrophils Percent Auto 87.8 % (45.5-73.1); Platelet Count Result 436 k/mm3 (150-375); Red Blood Count 4.44 M/mm3 (4.2-5.4); Red Cell Distribution Width 12.5 % (11.5-14.5); White Blood Count 18.9 K/mm3 (4.5-10.0)
[2020-12-10 06:01] VITALS: BP 104/60; PULSE 72; RESP 16; TEMP 37.1; O2SAT 99
[2020-12-10 09:00] VITALS: BP 127/67; PULSE 77; RESP 18; TEMP 36.6; O2SAT 98
--- NOTE | 2020-12-10 09:00 | PC.NURSE ---
PT introductions made and plan of care discussed per post op quality assurance group leader surgery, pain management, daily care activities and pending discharge to home. PT verbalized understanding of such care.
--- NOTE | 2020-12-10 09:02 | PM.GYNPNOP ---
RIGGER HELPER - A/P Postoperative Procedures: Procedures Operation Date: 12/09/20 12:00 Actual Procedures Side Surgeon p Robotic Assisted Total Vaginal Hysterectomy with Bilateral Salpingectomy Bilateral Shane Zhang MD A: POD#1, doing well. P: Home to f/u 2 weeks. Time Spent With Patient Time with patient: less than 15 minutes RIGGER HELPER- PN:Subj Post-Op Subjective Date/time seen: 12/10/20 09:02 Interval history: Pain OK. Tolerating diet. Voiding. Would like to go home. Exam Narrative: Exam Narrative: AVSS I/O OK ABD soft, nontender. Incisions c/d/i. EXT nontender RIGGER HELPER - PN: Obj Data Vital Signs Vital Signs: Vital Signs - 24 hr 12/09/20 10:35 12/09/20 15:09 12/09/20 15:25 Temperature 37.1 C 36.4 C Pulse Rate 75 80 85 Respiratory Rate 16 18 17 Blood Pressure 117/49 L 104/51 L 110/54 L Pulse Oximetry 98 100 100 12/09/20 15:40 12/09/20 15:55 12/09/20 16:10 Temperature Pulse Rate 77 64 69 Respiratory Rate 12 12 14 Blood Pressure 116/54 L 107/47 L 104/52 L Pulse Oximetry 100 100 100 12/09/20 16:25 12/09/20 16:40 12/09/20 17:10 Temperature 36.5 C Pulse Rate 72 86 89 Respiratory Rate 13 18 18 Blood Pressure 117/58 L 124/58 L 123/59 L Pulse Oximetry 99 99 98 12/09/20 17:28 12/09/20 19:45 12/09/20 23:00 Temperature 37.1 C 37.1 C Pulse Rate 89 89 82 Respiratory Rate 18 16 16 Blood Pressure 120/64 107/60 Pulse Oximetry 98 100 100 12/10/20 06:01 Temperature 37.1 C Pulse Rate 72 Respiratory Rate 16 Blood Pressure 104/60 Pulse Oximetry 99 Intake/Output Intake/Output: Intake & Output 12/07/20 12/08/20 12/09/20 12/10/20 23:59 23:59 23:59 23:59 Intake Total 600 Output Total 340 Balance 260 Meds/Results Medications: Active Medications Generic Name Dose Route Start Last Admin Trade Name Freq PRN Reason Stop Dose Admin Hydrocodone Bitart/Acetaminophen 1 tab 12/09/20 16:55 12/10/20 05:18 Hydrocodone/Acetaminophen (*Crx) 5-325 Mg Tablet PO 1 tab Q3H PRN Administration Pain Rated 5 or Less Hydrocodone Bitart/Acetaminophen 1 tab 12/09/20 16:55 Hydrocodone/Acetaminophen (*Crx) 10-325 Mg Tablet PO Q3H PRN Pain Rated 6 or Greater Enoxaparin Sodium 40 mg 12/09/20 21:00 12/09/20 22:53 Enoxaparin 40 Mg/0.4 Ml Syringe SUB-Q 40 mg HS MIRYAM Administration Fluticasone Propionate 1 spray 12/09/20 21:00 Fluticasone Propionate 0.05% Na Spr 16 Gm Btl (*Bkc) NASAL HS MIRYAM Dextrose/Sodium Chloride 1,000 mls @ 125 mls/hr 12/09/20 16:55 12/09/20 17:21 Dextrose 5% Sodium Chloride 0.45% IV CONT 125 mls/hr .Q8H MIRYAM Administration Ibuprofen 600 mg 12/09/20 16:55 12/10/20 05:17 Ibuprofen 600 Mg Tablet PO 600 mg Q6H PRN Administration Cramping Ketorolac Tromethamine 30 mg 12/09/20 16:55 12/09/20 17:28 Ketorolac 30 Mg/Ml Vial (*Bkc) IV PUSH 12/14/20 16:56 30 mg Q6H PRN Administration Pain Rated 4-6 Morphine Sulfate 4 mg 12/09/20 16:55 Morphine Sulfate (*Crx) 4 Mg/Ml Inj IV PUSH Q4H PRN Pain Rated 7-10 Naloxone HCl 0.1 mg 12/09/20 16:55 Naloxone Hcl 0.4 Mg/Ml Vial IV PUSH Q2M PRN Respiratory rate less than 10 Ondansetron HCl 4 mg 12/09/20 16:55 Ondansetron Inj 4 Mg/2 Ml Vial IV PUSH Q6H PRN Nausea Simethicone 80 mg 12/09/20 16:55 12/09/20 22:51 Simethicone 80 Mg Tab.Chew PO 80 mg Q2H PRN Administration Gas Labs CBC & Chem 7: 12/10/20 05:17 Labs: Laboratory Results - last 24 hr 12/10/20 05:17 WBC 18.9 H RBC 4.44 Hgb 13.3 Hct 39.2 MCV 88.3 MCH 30.0 MCHC 33.9 RDW 12.5 Plt Count 436 H MPV 9.2 Immature Gran % (Auto) 0.5 Neut % (Auto) 87.8 H Lymph % (Auto) 7.6 L [place] % (Auto) 4.0 Eos % (Auto) 0.0 Baso % (Auto) 0.1 L Lymph # (Auto) 1.43 [place] # (Auto) 0.8 H Eos # (Auto) 0.0 Baso # (Auto) 0.0 Abs Immat Gran (auto) 0.09 H Absolute Neuts (auto) 16.6 H Absolute Nuc
[2020-12-10 09:30] VITALS: BP 127/67; PULSE 77; RESP 18; TEMP 36.6; O2SAT 98
[2020-12-10] MEDS: SIMETHICONE 80 MG TAB.CHEW PO (09:32)
--- NOTE | 2020-12-10 10:34 | WPDANESPN ---
Anes - Prog Note Post-Op Date/Time: 12/10/20 10:34 Cardiovascular status: normal Respiratory status: normal Airway patency: baseline Mental status: baseline Post-Op hydration status: normal Vital Signs: Last Vital Signs Temp 37.1 C 12/10/20 06:01 Pulse 72 12/10/20 06:01 Resp 16 12/10/20 06:01 BP 104/60 12/10/20 06:01 Pulse Ox 99 12/10/20 06:01 Pain Score (VAS): 3 I/O: Intake & Output 12/09/20 12/10/20 12/10/20 23:59 07:59 15:59 Intake Total 600 Output Total 340 Balance 260 Laboratory Tests 12/10/20 05:17 12/10/20 05:17 WBC 18.9 H RBC 4.44 Hgb 13.3 Hct 39.2 MCV 88.3 MCH 30.0 MCHC 33.9 RDW 12.5 Plt Count 436 H MPV 9.2 Immature Gran % (Auto) 0.5 Neut % (Auto) 87.8 H Lymph % (Auto) 7.6 L [place] % (Auto) 4.0 Eos % (Auto) 0.0 Baso % (Auto) 0.1 L Lymph # (Auto) 1.43 [place] # (Auto) 0.8 H Eos # (Auto) 0.0 Baso # (Auto) 0.0 Abs Immat Gran (auto) 0.09 H Absolute Neuts (auto) 16.6 H Absolute Nucleated RBC 0.0 Nucleated RBC % 0.0 Post-procedural complaints: none Patient Feedback: Patient satisfied with anesthetic care.
--- NOTE | 2020-12-10 10:45 | PC.NURSE ---
PT received discharge instructions per protocol and verbalized understanding of such instructions. no barriers to learning. PT and significant other are both recipients of instructions. pt had one to one discussion.
--- NOTE | 2020-12-10 11:00 | PC.NURSE ---
PT discharged to home ambulatory accompanied by significant other to waiting car. Follow up appts confirmed
== END 2020-12-10 11:00 | disposition home or self-care (01) ==
LOC: ANHSURGERY 15:03 → ANHOB2 16:57
PROVIDERS: PCP Internal Medicine; Visit Provider Obstetrics & Gynecology
PROC: (CPT 58552; principal; 2020-12-09 12:00)
DX: R10.2 Pelvic and perineal pain (principal); N92.1 Excessive and frequent menstruation with irregular cycle; N80.0 Endometriosis of uterus; D25.1 Intramural leiomyoma of uterus; F32.9 Major depressive disorder, single episode, unspecified; Z87.891 Personal history of nicotine dependence; E66.9 Obesity, unspecified; Z68.38 Body mass index [BMI] 38.0-38.9, adult
CPT/HCPCS: 58552; S2900; 36415; 85025; 88307; 99199; A9270; J1100; J1170; J1650; J1885; J2250; J2405; J2704; J2710; J3010; J7030; J7120

== ENCOUNTER → 2021-07-08 14:17 | Outpatient (CLI) | payer BC, SELFPAY ==
--- NOTE | ~2021-07-08 | XR_ITS ---
XR pelvis 1-2V 07/08/2021 15:33 Indication: Pelvic pain Procedure: AP pelvis Comparison: No prior studies for comparison. Findings: There is mild symmetric osteoarthritis of the hips. Pelvic rings are intact. Sacral foramen are symmetric. No acute fracture or traumatic malalignment. Impression: 1: Mild symmetric osteoarthritis of the hips. Reviewed, dictated and finalized at location A. E PACKING HEADER Impression: 1: Mild symmetric osteoarthritis of the hips.
--- NOTE | ~2021-07-08 | XR_ITS ---
XR_[id number]_CR 07/08/2021 15:33 Indication: Cervical spine pain Procedure: 4 views of the cervical spine Comparison: No prior studies for comparison. Findings: There are mild uncinate degenerative changes at C4-5 and C5-6. Normal cervical alignment. V ertebral body heights are maintained. No significant disc narrowing. No prevertebral soft tissue swel ling. Odontoid process within normal limits. Impression: 1: Mild cervical spondylosis. Reviewed, dictated and finalized at location A. INE MAINTENANCE Impression: 1: Mild cervical spondylosis.
--- NOTE | ~2021-07-08 | XR_ITS ---
EXAMINATION: XR thoracic spine 2V EXAM DATE: 07/08/2021 15:33 INDICATION: C-T pain . TECHNIQUE: Thoracic spine frontal and lateral projections. Comparison is made to prior examination f rom 2018. FINDINGS: Mild lower thoracic disc disease. The vertebral body heights relatively well-maintained. Th ere are no acute fractures identified. Paraspinal soft tissue is unremarkable. IMPRESSION: Mild lower thoracic spondylosis. Reviewed, dictated and finalized at location A. MOVER
--- NOTE | ~2021-07-08 | XR_ITS ---
EXAMINATION: XR lumbar spine 2-3V EXAM DATE: 07/08/2021 15:33 INDICATION: Low back pain. TECHNIQUE: Lumber spine frontal, lateral, lateral L5-S1 projections for interpretation. Comparison is made to prior examination from 2018. FINDINGS: There is chronic bilateral L5 spondylolysis with grade 2 anterolisthesis L5 on S1. There is moderate disc disease at this level, mild to moderate at L4-5 and mild at the levels above. Mild to moderate lumbar facet arthropathy. Sacrum, sacroiliac joints, sacral arcuate lines are intact. Parasp inal soft tissue is unremarkable. There are cholecystectomy clips. Compared to 2018, stable or minimal increase in anterolisthesis at L5-S1. IMPRESSION: 1. Chronic L5 spondylolysis, grade 2 anterolisthesis. 2. Mild to moderate lumbar spondylosis. Reviewed, dictated and finalized at location A. RVISOR TYPE BAR AND SEGMENT
== END ==
PROVIDERS: PCP Internal Medicine; Visit Provider Chiropractor
DX: M16.0 Bilateral primary osteoarthritis of hip (principal); M47.894 Other spondylosis, thoracic region; M47.896 Other spondylosis, lumbar region; M47.892 Other spondylosis, cervical region
CPT/HCPCS: 72040; 72070; 72100; 72170

== ENCOUNTER → 2021-08-05 07:57 | Outpatient (CLI) | payer BC, SELFPAY ==
--- NOTE | ~2021-08-05 | MMUS_ITS ---
EXAMINATION: MM diagnostic tonio BI w yadiel, US breast RT limited HISTORY: Follow-up right breast masses TECHNIQUE: Additional 3-D tomosynthesis images of the breasts were performed and synthetic 2-D images were generated. CAD analysis was submitted and interpreted. High resolution Limited right breast ult rasound was performed. COMPARISON: 11/06/2019 BREAST PARENCHYMAL COMPOSITION: Breast composition is almost entirely fatty. FINDINGS: MAMMOGRAPHIC FINDINGS: There are no suspicious masses, calcifications or architectural distortion ULTRASOUND: Limited right breast ultrasound: There are stable small lipomas in the right breast at 9:00, largest measuring 7 mm, 19 cm from the nipple. No suspicious masses to suggest malignancy. IMPRESSION: 1. No evidence for malignancy in either breast. 2. Routine yearly screening mammogram and regular clinical breast examination are recommended. BI-RADS Category 2: Benign finding(s). Reviewed, dictated and finalized at location A. SPORTATION MODELER IMPRESSION: 1. No evidence for malignancy in either breast. 2. Routine yearly screening mammogram and regular clinical breast examination a re recommended. BI-RADS Category 2: Benign finding(s).
== END ==
PROVIDERS: PCP Internal Medicine; Visit Provider Obstetrics & Gynecology
DX: R92.8 Other abnormal and inconclusive findings on diagnostic imaging of breast (principal)
CPT/HCPCS: 76642; 77062; 77066; G0279

== ENCOUNTER 2024-03-20 15:09 | Outpatient (CLI) | payer BC, SELFPAY ==
--- NOTE | ~2024-03-20 | MM_ITS ---
EXAMINATION: MM screening [facility] BI w yadiel HISTORY: Screening TECHNIQUE: Craniocaudal and mediolateral oblique 3-D tomosynthesis images were obtained and synthetic 2-D images were generated. CAD analysis was submitted and interpreted. COMPARISON: Comparison to multiple prior studies sequentially, with oldest reviewed study dated 11/05. BREAST PARENCHYMAL COMPOSITION: Not Dense. The breasts are almost entirely fatty. FINDINGS: There is no evidence of suspicious mass, calcification, or architectural distortion to sugg est malignancy in either breast. There has been no suspicious interval change. IMPRESSION: 1. No mammographic evidence of malignancy. 2. Recommend routine screening mammography in one year. BI-RADS Category 1: Negative Reviewed, dictated and finalized at location B.
== END 2024-03-20 15:10 ==
LOC: MICIMG 15:10
PROVIDERS: PCP Internal Medicine; Visit Provider Internal Medicine
DX: Z12.31 Encounter for screening mammogram for malignant neoplasm of breast (principal)
CPT/HCPCS: 77063; 77067

== ENCOUNTER 2024-06-21 08:20 | Outpatient (CLI) | payer BC, SELFPAY ==
--- NOTE | ~2024-06-21 | MMUS_ITS ---
EXAMINATION: MM diagnostic tonio RT w yadiel, US breast RT limited HISTORY: Palpable right breast abnormality TECHNIQUE: Additional 3-D tomosynthesis images of the right breast were performed and synthetic 2-D i mages were generated. CAD analysis was submitted and interpreted. High resolution Limited right breas t ultrasound was performed. COMPARISON: Comparison to multiple prior studies sequentially, with oldest reviewed study dated 11/05. BREAST PARENCHYMAL COMPOSITION: Not Dense: The breasts are almost entirely fatty. FINDINGS: MAMMOGRAPHIC FINDINGS: There are no suspicious masses, calcifications or architectural distortion in the right breast to sug gest malignancy. ULTRASOUND: Limited right breast ultrasound: Normal heterogeneous echotexture without focal mass. IMPRESSION: 1. No evidence for malignancy in the right breast. 2. Routine yearly screening mammogram and regular clinical breast examination are recommended. BI-RADS Category 1: Negative Reviewed, dictated and finalized at location B. IMPRESSION: 1. No evidence for malignancy in the right breast. 2. Routine yearly screening mammogram and regular clinical breast examination a re recommended. BI-RADS Category 1: Negative
== END 2024-06-21 08:21 | disposition home or self-care (01) ==
LOC: CHSIMG 08:22
PROVIDERS: PCP Internal Medicine; Visit Provider Internal Medicine
DX: N63.12 Unspecified lump in the right breast, upper inner quadrant (principal)
CPT/HCPCS: 76642; 77061; 77065; G0279

== ENCOUNTER 2025-02-07 14:06 | Outpatient (CLI) | payer BC, SELFPAY ==
--- NOTE | ~2025-02-07 | XR_ITS ---
EXAMINATION: SACRUM/COCCYX DATE: 02/07/2025 14:23 INDICATION: Tail bone pain and low back pain after fall TECHNIQUE: Three views sacrum/coccyx FINDINGS: There is no displaced fracture of the sacrum. The coccyx demonstrates overall normal morphology with out acute angulation.There is osteoarthritis of the hips. IMPRESSION: 1. No acute displaced osseous abnormality of the sacrum. Suspicion for occult or nondisplaced sacral fracture can either be evaluated with CT or MRI. 2. Grossly normal morphology to the coccyx without acute angulation. However, due to the wide range of normal variation of the coccyx, acute injury would be best evaluated by clinical examination and patient's symptoms. Reviewed, dictated and finalized at location B.
== END 2025-02-07 14:07 | disposition home or self-care (01) ==
LOC: GOSHIMG 14:07
PROVIDERS: PCP Family Medicine; Visit Provider Family Medicine
DX: M53.3 Sacrococcygeal disorders, not elsewhere classified (principal)
CPT/HCPCS: 72220

== ENCOUNTER 2025-03-24 14:32 | Outpatient (CLI) | payer BC, SELFPAY ==
--- NOTE | ~2025-03-24 | MM_ITS ---
EXAMINATION: MM screening tonio BI w yadiel HISTORY: Screening TECHNIQUE: Craniocaudal and mediolateral oblique 3-D tomosynthesis images were obtained and synthetic 2-D images were generated. CAD analysis was submitted and interpreted. COMPARISON: Comparison to multiple prior studies sequentially, with oldest reviewed study dated 11/05. BREAST PARENCHYMAL COMPOSITION: Not dense: There are scattered areas of fibroglandular density. FINDINGS: There is no evidence of suspicious mass, calcification, or architectural distortion to sugg est malignancy in either breast. There has been no suspicious interval change. IMPRESSION: 1. No mammographic evidence of malignancy. 2. Recommend routine screening mammography in one year. BI-RADS Category 1: Negative Reviewed, dictated and finalized at location B.
== END 2025-03-24 14:33 | disposition home or self-care (01) ==
LOC: MICIMG 14:34
PROVIDERS: PCP Family Medicine; Visit Provider Family Medicine
DX: Z12.31 Encounter for screening mammogram for malignant neoplasm of breast (principal)
CPT/HCPCS: 77063; 77067

== ENCOUNTER 2025-03-31 11:53 | Outpatient (CLI) | payer BC, SELFPAY ==
--- NOTE | ~2025-03-31 | CT_ITS ---
Non-contrast CT scan of the Pelvis Clinical indication: Sacral fracture Technique: 2.5 mm axial scans were obtained through the pelvis without intravenous or oral contrast. Dose reduction technique was used on this scan by utilizing automated exposure control and iterative reconstruction technique. The dose-length product (DLP) was 397.27 mGy-cm. Findings: Visualized bowel loops are unremarkable. No bowel obstruction. No ascites seen. Urinary leslie dder unremarkable. No pelvic mass seen. No lymphadenopathy identified. No acute fracture or dislocation identified. No sacral fracture identified. There is mild to moderate bilateral hip joint degenerative change, right worse than left. Bilateral L5 pars interarticularis defects are present, with 1 cm anterolisthesis of L5 over S1. Impression: No acute fracture. No sacral fracture. Bilateral L5 pars interarticularis defects, with 1 cm anterolisthesis of L5 over S1. Mild to moderate bilateral hip joint degenerative change. Reviewed, dictated and finalized at [facility]. Impression: No acute fracture. No sacral fracture. Bilateral L5 pars interarticularis defects, with 1 cm anterolisthesis of L5 ove r S1. Mild to moderate bilateral hip joint degenerative change.
== END 2025-03-31 11:54 | disposition home or self-care (01) ==
PROVIDERS: PCP Family Medicine; Visit Provider Family Medicine
DX: M43.06 Spondylolysis, lumbar region (principal); M43.17 Spondylolisthesis, lumbosacral region; M16.0 Bilateral primary osteoarthritis of hip; S32.10XA Unspecified fracture of sacrum, initial encounter for closed fracture; X58.XXXA Exposure to other specified factors, initial encounter
CPT/HCPCS: 72192